=== PATIENT | female | born 1980 | race Caucasian/White ===

== ENCOUNTER 2018-11-16 20:13 | Outpatient (REF) | payer BC, SELFPAY ==
[2018-11-16 20:56] LABS: Abs Immature Grans 0.01 k/cumm (0.0-0.09); Absolute Basophil Count 0.03 k/cumm (0.0-0.2); Absolute Lymphocyte Count 1.67 k/cumm (1.2-3.4); Absolute Monocyte Count 0.62 k/cumm (0.11-0.7); Absolute Neutrophil Count 4.49 k/cumm (1.2-6.7); Basophils % 0.4; Eosinophils % 2.8; HCT 46.3 % (36.0-46.0); HGB 15.6 g/dL (12.0-15.5); Immature Grans % 0.1; Lymphocytes % 23.8; Mean Corp. HGB Concentration 33.7 g/dL (32.0-36.0); Mean Corpuscular Hemoglobin 28.3 pg (27.0-33.0); Mean Corpuscular Volume 83.9 fL (80-95); Mean Platelet Volume 11.8 fL (8.0-11.0); Monocytes % 8.8; Neutrophils % 64.1; Platelet Count 209 x1000/uL (130-400); RBC 5.52 m/cumm (4.00-5.20); RBC Distribution Width 13.5 % (11.7-14.6); White Blood Cell Count 7.02 k/cumm (4.4-10.8)
[2018-11-16 21:20] LABS: ALT 18 U/L (12-78); AST 11 U/L (15-37); Albumin 3.9 g/dL (3.4-5.0); Alkaline Phosphatase 105 U/L (46-116); Anion Gap 10.9 mmol/L (3-11); BUN 8 mg/dL (7-18); Bilirubin, Total 0.8 mg/dL (0.2-1.0); CO2 26.1 mmol/L (21.0-32.0); CREATININE 0.85 mg/dL (0.55-1.02); Calcium 9.3 mg/dL (8.5-10.1); Chloride 104 mmol/L (98-107); Cholesterol 229 mg/dL (50-200); Glucose 82 mg/dL (70-100); HDL Cholesterol 48 mg/dL (40-60); LDL CHOLESTEROL 137 mg/dL (<100); Potassium 3.8 mmol/L (3.5-5.1); Sodium 141 mmol/L (136-145); Total Protein 7.4 g/dL (6.4-8.2); Triglyceride 169 mg/dL (30-150)
[2018-11-19 11:23] LABS: IgA 230 mg/dL (85-499); Interpretation SEE COMMENTS; Tissue Transglutaminase IgA <1.2 U/mL (<4.0)
== END 2018-11-16 20:33 ==
LOC: NCHCN 20:13
PROVIDERS: Visit Provider Family Medicine
DX: E78.5 Hyperlipidemia, unspecified (principal); R19.7 Diarrhea, unspecified
CPT/HCPCS: 80053; 80061; 82784; 83516; 83721; 85025

== ENCOUNTER 2019-08-20 09:33 | Outpatient (REF) | payer BC, SELFPAY ==
--- NOTE | 2019-08-20 08:00 | PAPFT_PTH ---
PATIENT: Roya Cowan LOC: [facility] U#:[id number] AGE/SX: 39/F ROOM: RE08/20/[address]: Ronel Klein : 1980 BED: DIS: 08/20/2019 SPEC #: [id number] RECD: 08/21/19 12:53 STATUS: ELYSSA REQ #: [id number] JEFFREY: 08/20/19 08:[address]: Ronel Klein DEPT: [facility] Cytology RECD BY: Savi Cano ENTERED: 08/21/19 12:53 SP TYPE: PAPFT OTHR DR: Farzad Patterson Tissues: 1 - CX/ENDOCX FOR PAP SMEARS Procedures: PAP THIN PREP/UVM Screening HPV DNA PROBE Comments: [id number]
[2019-08-20 21:44] LABS: HCT 41.8 % (36.0-46.0); Mean Corp. HGB Concentration 33.5 g/dL (32.0-36.0); Mean Corpuscular Hemoglobin 28.2 pg (27.0-33.0); Mean Corpuscular Volume 84.1 fL (80-95); Mean Platelet Volume 11.7 fL (8.0-11.0); Platelet Count 214 x1000/uL (130-400); RBC 4.97 m/cumm (4.00-5.20); RBC Distribution Width 13.4 % (11.7-14.6); White Blood Cell Count 4.89 k/cumm (4.4-10.8)
== END 2019-08-20 09:53 ==
LOC: NCHCN 09:33
PROVIDERS: Visit Provider Family Medicine
DX: Z00.00 Encounter for general adult medical examination without abnormal findings (principal); Z12.4 Encounter for screening for malignant neoplasm of cervix; D68.51 Activated protein C resistance
CPT/HCPCS: 85027; 88142; 87624

== ENCOUNTER 2021-04-22 17:45 | Outpatient (REF) | payer BC, SELFPAY ==
[2021-04-24 15:09] LABS: COVID-19 RT-PCR UVMMC Result Negative (Negative)
== END 2021-04-22 17:46 | disposition home or self-care (01) ==
LOC: NCHCN 17:45
PROVIDERS: Visit Provider Nurse Practitioner Family
DX: Z20.822 Contact with and (suspected) exposure to COVID-19 (principal); J06.9 Acute upper respiratory infection, unspecified
CPT/HCPCS: U0003

== ENCOUNTER 2021-09-30 17:50 | Outpatient (REF) | payer BC, SELFPAY | END 2021-09-30 17:51 | disposition home or self-care (01) | LOC: NCHCN 17:50 | PROVIDERS: Visit Provider Registered Nurse | DX: R39.9 Unspecified symptoms and signs involving the genitourinary system (principal) | CPT/HCPCS: 87086 ==

== ENCOUNTER 2022-03-04 18:54 | Outpatient (REF) | payer BC, SELFPAY ==
[2022-03-04 20:41] LABS: Abs Immature Grans 0.01 10^3/uL (0.0-0.06); Absolute Basophil Count 0.08 10^3/uL (0.0-0.2); Absolute Eosinophil Count 0.17 10^3/uL (0.0-0.7); Absolute Lymphocyte Count 2.08 10^3/uL (1.2-3.4); Absolute Monocyte Count 0.62 10^3/uL (0.1-0.8); Absolute Neutrophil Count 3.82 10^3/uL (1.2-6.7); Basophils % 1.2; Eosinophils % 2.5; HCT 40.9 % (36.0-46.0); Immature Grans % 0.1; Lymphocytes % 30.7; MCH 28.6 pg (27.0-33.0); MCHC 34.2 % (32.0-36.0); MCV 84 fL (80-95); MPV 11.7 fL (8.0-11.0); Monocytes % 9.1; Neutrophils % 56.4; Platelet Count 240 10^3/uL (130-400); RDW-SD 39.4 fL; WBC 6.78 10^3/uL (4.4-10.8)
[2022-03-04 21:03] LABS: ALT 22 U/L (14-59); AST 22 U/L (15-37); Albumin 3.3 g/dL (3.4-5.0); Alkaline Phosphatase 90 U/L (46-116); BUN 9 mg/dL (7-18); Bilirubin, Total 0.4 mg/dL (0.2-1.0); CREATININE 0.9 mg/dL (0.55-1.02); Calculated LDL 120 mg/dL (<100); Chloride 103 mmol/L (98-107); Cholesterol 218 mg/dL (<200); Glucose 98 mg/dL (74-106); HDL Cholesterol 54 mg/dL (40-60); Hemoglobin A1C 5.3 % (<5.7); Potassium 3.6 mmol/L (3.5-5.1); Sodium 137 mmol/L (136-145); TSH (W/Ref FT4) 1.53 uIU/mL (0.36-3.74); Total Protein 6.7 g/dL (6.4-8.2); Triglyceride 223 mg/dL (<150)
[2022-03-07 06:02] LABS: Vitamin D 25 Total 13.4 ng/mL (30-100)
== END 2022-03-04 18:55 | disposition home or self-care (01) ==
LOC: NCHCN 18:54
PROVIDERS: Visit Provider Registered Nurse
DX: R53.83 Other fatigue (principal); E88.81 Metabolic syndrome and other insulin resistance; E78.5 Hyperlipidemia, unspecified; E66.01 Morbid (severe) obesity due to excess calories
CPT/HCPCS: 80053; 80061; 82306; 82043; 82570; 83036; 84443; 85025

== ENCOUNTER 2022-05-30 16:02 | Outpatient (REF) | payer BC, SELFPAY ==
[2022-06-01 10:32] LABS: COVID-19 RT-PCR UVMMC Result Negative (Negative)
== END 2022-05-30 16:03 | disposition home or self-care (01) ==
LOC: NCHCN 16:02
PROVIDERS: Visit Provider Nurse Practitioner Family
DX: Z20.822 Contact with and (suspected) exposure to COVID-19 (principal); J20.9 Acute bronchitis, unspecified
CPT/HCPCS: U0003

== ENCOUNTER 2022-07-20 15:24 | Outpatient (REF) | payer BC, SELFPAY ==
[2022-07-20 15:46] LABS: Vitamin D 25 Total 31.7 ng/mL (30-100)
== END 2022-07-20 15:25 | disposition home or self-care (01) ==
LOC: NCHCN 15:24
PROVIDERS: Visit Provider Family Medicine
DX: E55.9 Vitamin D deficiency, unspecified (principal)
CPT/HCPCS: 82306

== ENCOUNTER 2022-09-14 17:18 | Outpatient (REF) | payer BC, SELFPAY ==
[2022-09-14 21:12] LABS: Anion Gap 10.4 mmol/L (3-11); BUN 8 mg/dL (7-18); CO2 24.6 mmol/L (21.0-32.0); Calcium 9.5 mg/dL (8.5-10.1); Chloride 102 mmol/L (98-107); Estimated GFR 73.04 (mL/min/1.73m2); Glucose 105 mg/dL (74-106); Potassium 3.2 mmol/L (3.5-5.1); Sodium 137 mmol/L (136-145)
== END 2022-09-14 17:19 | disposition home or self-care (01) ==
LOC: NCHCN 17:18
PROVIDERS: Visit Provider Family Medicine
DX: N28.9 Disorder of kidney and ureter, unspecified (principal); E87.6 Hypokalemia
CPT/HCPCS: 80048

== ENCOUNTER 2023-09-08 11:22 | Outpatient (REF) | payer BC, SELFPAY ==
--- OUTSIDE RECORDS SUMMARY | 2023-09-08 11:31 | XMS_ITS | CCD ---
Author Name Unknown Address [address] [place] [address] [id number] Organization Unknown Address [address] [place], [place] [id number] Care Team Providers Care Operator And Truck Driver Name Role Phone CHENTE CASTANEDA Attending Physician [phone] CHENTE CASTANEDA Rounding (Secondary) Physici an [phone] Vital Signs Unknown or Not Available. Allergies Allergy Code Allergy Type Reaction Status PERTUSSIS IMMUNE GLOBULIN 0 Drug allergy UNKNOWN; SWELLING AND REDNESS Active PERTUSIS VACCINE {Clinical monitoring unavailable} 0 Drug allergy SWELLING Active Procedures Unknown or Not Available. History of Immunizations Immunization Code Date MMR 03 07/24/2015 Problems Problem Code Start Date Resolved Date Status Vitamin D deficiency 48998663 Acti ve Hypertension 20202993 Active Obesity 150510591 Active Asthma 534592321 Active GERD 515126469 Active Migraine 86676523 Active Results Unknown or Not Available. Active Medications Medication Code Dose Units Frequency Route Modificatio n Start Date/Time Potassium Chloride 20MEQ Oral Tablet, Extended Release 0619095 1 TABLET DAILY ORAL 16:10 Prescription Detail TAKE 1 TABLET ORAL DAILY Medications Administered During Visit Unknown or Not Available. Encounters Encounter Diagnosis Diagnosis Code Start Date Impingement syndrome of left shoulder M7542 04/14/2023 Social History Smoking Status Code Start Date End Date Never smoker 579382689 Patient Decision Aids Unknown or Not Available. Discharge Instructions You were admitted to [facility] on 04/14/2023 14:42 with a principal diagnosis of Impingement syndrome of left shoulder You were discharged from [facility] on 04/14/2023 00:00 Should you have any questions prior to discharge, please contact a member of your healthcare team. If you have left the hospital and have any questions, please contact your primary care physician. Chief Complaint and Reason For Visit Unknown or Not Available. Function Status Unknown or Not Available. Plan of Care Unknown or Not Available. Referral/Transition of Care Unknown or Not Available.
--- OUTSIDE RECORDS SUMMARY | 2023-09-08 11:31 | XMS_ITS | CCD ---
Author Name Unknown Address [address] [place] [address] [phone] Organization Unknown Address [address] [place] [address] [phone] Care Team Providers Care Underground Mine Superintendent Name Role Phone CHENTE CASTANEDA Attending Physician [phone] CHENTE CASTANEDA Rounding (Secondary) Physici an [phone] Vital Signs Unknown or Not Available. Allergies Allergy Code Allergy Type Reaction Status PERTUSSIS IMMUNE GLOBULIN 0 Drug allergy UNKNOWN; SWELLING AND REDNESS Active PERTUSIS VACCINE {Clinical monitoring unavailable} 0 Drug allergy SWELLING Active Procedures Unknown or Not Available. History of Immunizations Immunization Code Date MMR 07/24/2015 Problems Problem Code Start Date Resolved Date Status Vitamin D deficiency 81854542 Acti ve Hypertension 80209352 Active Obesity 305889192 Active Asthma 761179401 Active GERD 571481432 Active Migraine 06928229 Active Results Unknown or Not Available. Active Medications Medication Code Dose Units Frequency Route Modificatio n Start Date/Time Potassium Chloride 20MEQ Oral Tablet, Extended Release 6258594 1 TABLET DAILY ORAL 16:10 Prescription Detail TAKE 1 TABLET ORAL DAILY Medications Administered During Visit Unknown or Not Available. Encounters Encounter Diagnosis Diagnosis Code Start Date Internal impingement of left shoulder [id number] 11/09/2022 Social History Smoking Status Code Start Date End Date Never smoker 850243813 Patient Decision Aids Unknown or Not Available. Discharge Instructions You were admitted to [facility] on 11/09/2022 09:50 with a principal diagnosis of Internal impingement of left shoulder You were discharged from [facility] on 11/09/2022 00:00 Should you have any questions prior [...]
--- OUTSIDE RECORDS SUMMARY | 2023-09-08 11:32 | XMS_ITS | CCD ---
Author Name Unknown Address [address] [place] [address] [phone] Organization Unknown Address [address] [place] [address] [phone] Care Team Providers Care Electro Mechanic Name Role Phone CHAZ HICKS Attending Physician [phone] Vital Signs Unknown or Not Available. Allergies Allergy Code Allergy Type Reaction Status PERTUSSIS IMMUNE GLOBULIN 0 Drug allergy UNKNOWN; SWELLING AND REDNESS Active PERTUSIS VACCINE {Clinical monitoring unavailable} 0 Drug allergy SWELLING Active Procedures Unknown or Not Available. History of Immunizations Immunization Code Date MMR 07/24/2015 Problems Problem Code Start Date Resolved Date Status Vitamin D deficiency 72440553 Acti ve Hypertension 26954369 Active Obesity 506177420 Active Asthma 630874764 Active GERD 898150419 Active Migraine 44560670 Active Results [facility] COVID RHEONIX* - Yanet ect Date/Time: 11/09/2021 09:15 Test Name Code Test Result Test Units Test Ref Rang e Tier- 33512-7 SYMPTOMS N/A SARS COV2 RNA: 40426-2 NEGATIVE N/A REFERENCE RANGE: NEGAT Active Medications Medication Code Dose Units Frequency Route Modificatio n Start Date/Time Potassium Chloride 20MEQ Oral Tablet, Extended Release 5486755 1 TABLET DAILY ORAL 16:10 Prescription Detail TAKE 1 TABLET ORAL DAILY Medications Administered During Visit Unknown or Not Available. Encounters Encounter Diagnosis Diagnosis Code Start Date Exposure to SARS-CoV-2 710158540 Social History Smoking Status Code Start Date End Date Never smoker 046202631 Patient Decision Aids Unknown or Not Available. Discharge Instructions You were admitted to [facility] on 11/09/2021 21:01 with a principal diagnosis of Contact with and (suspected) exposure to COVID-19 You had the following tests done:YUE COVID RHEONIX* You were discharged from [facility] on 11/09/2021 21:02 Should you have any questions prior to [...]
--- OUTSIDE RECORDS SUMMARY | 2023-09-08 11:32 | XMS_ITS | CCD ---
Author Name Unknown Address [address] [place] [address] [phone] Organization Unknown Address [address] [place] [address] [phone] Care Team Providers Care Veneer Clipper Name Role Phone MERLIN RAMSEY Attending Physician [phone] MERLIN RAMSEY Er Physician [phone] RAMYA Mathews Registered Nurse [phone] Vital Signs Vital Sign Value Unit Date/Time Recent/Initial ? BP Systolic 104 mmHg 09/02/2022 11:21 Initial VS BP Diastolic 67 mmHg 09/02/2022 11:21 Initia l VS Heart Rate 89 bpm 09/02/2022 11:21 Initial VS BMI (Body Mass Index) 43.27 kg/m^2 09/02/2022 11: 42 Initial VS Weight Measured 293 lbs 09/02/2022 11:42 Ini tial VS Height 69 in 09/02/2022 11:42 Initial VS BSA (Body Surface Area) 2.54 m^2 09/02/2022 1 1:42 Initial VS Respiratory Rate 18 bpm 09/02/2022 11:42 In itial VS O2 % BldC Oximetry 97 % 09/02/2022 11:42 Initial VS Body Temperature 37.1 degrees 09/02/2022 11:42 In itial VS BP Systolic 124 mmHg 09/02/2022 16:00 Most Re cent VS BP Diastolic 69 mmHg 09/02/2022 16:00 Most R ecent VS Respiratory Rate 18 bpm 09/02/2022 16:[address] Recent VS Heart Rate 84 bpm 09/02/2022 16:00 Most Rec ent VS O2 % BldC Oximetry 100 % 09/02/2022 16:00 Most Recent VS Allergies Allergy Code Allergy Type Reaction Status PERTUSSIS IMMUNE GLOBULIN 0 Drug allergy UNKNOWN; SWELLING AND REDNESS Active PERTUSIS VACCINE {Clinical monitoring unavailable} 0 Drug allergy SWELLING Active Procedures Unknown or Not Available. History of Immunizations Immunization Code Date MMR 03 07/24/2015 Problems Problem Code Start Date Resolved Date Status Vitamin D deficiency 92904064 Acti ve Hypertension 24249923 Active Obesity 427584686 Active Asthma 653224555 Active GERD 429428265 Active Migraine 26255226 Active Results BASIC METABOLIC PANEL (BMP) - Collect Date/Time: 09/02/2022 11:30 Test Name Code Test Result Test Units Test Ref Rang e GLUCOSE 2345-7 100 mg/dL L=70 H=116 BUN 3094-0 17 mg/dL L=6 H=25 CREATININE 2160-0 1.35 mg/dL L=0.51 H=0.95 SODIUM SERUM 2951-2 136 mmol/L L=136 H=145 POTASSIUM SERUM 2823-3 2.8 mmol/L L=3.4 H=5 .2 CHLORIDE SERUM 2075-0 100 mmol/L L=96 H=110 CARBON DIOXIDE (CO2) 2028-9 23 mmol/L L=22 H=34 ANION GAP 06887-9 13.2 mmol/L CALCIUM SERUM 52569-1 9.4 mg/dL L=8.2 H=10. 2 AGE 42 years eGFR (non-Afr.Amer.) 26805-9 43 mL/min eGFR (Afr-Nauruan) 99138-9 53 mL/min LIPASE* NEW - Collect Date/T randy: 09/02/2022 11:30 Test Name Code Test Result Test Units Test Ref Rang e LIPASE. 58 U/L L=16 H=77 MAGNESIUM SERUM* - Collect D ate/Time: 09/02/2022 11:30 Test Name Code Test Result Test Units Test Ref Rang e MAGNESIUM 32886-3 2.1 mg/dL L=1.8 H=2.4 TSH THYROID STIMULATING HORM ONE* - Collect Date/Time: 09/02/2022 11:30 Test Name Code Test Result Test Units Test Ref Rang e TSH 3014-8 1.014 uIU/mL L=0.360 H=3.74 0 CBC W/ DIFFERENTIAL* - Colle ct Date/Time: 09/02/2022 11:30 Test Name Code Test Result Test Units Test Ref Rang e WBC 6690-2 7.68 th/cmm L=5.00 H=10.00 NEUT % 61.5 % L=40.0 H=80.0 LYMPH % 23.7 % L=10.0 H=50.0 MONO % 98691-1 11.2 % L=2.0 H=12.0 EOS % 2.6 % L=0.0 H=8.0 BASO % 0.9 % L=0.0 H=3.0 IG % 2514-8 0.1 % L=0.0 H=1.1 NRBC % 94721-0 0.0 % L=0.0 H=0.0 NEUT abs count 751-8 4.7 th/cmm L=1.6 H=8. 4 LYMPH abs count 731-0 1.8 th/cmm L=1.5 H=4 .0 MONO abs count 742-7 0.9 th/cmm L=0.2 H=1. 0 EOS abs count 711-2 0.2 th/cmm L=0.0 H=0.5 BASO abs count 704-7 0.1 th/cmm L=0.0 H=0. 2 IG abs count 96950-7 0.0 th/cmm L=0.0 H=0.1 NRBC abs count 41017-3 0.0 mil/cmm L=0.0 H=0. 0 RBC 789-8 5.43 mil/cmm L=3.90 H=5.40 HEMOGLOBIN 718-7 15.8 gm/dL L=12.0 H=16.0 HEMATOCRIT 4544-3 45 % L=37 H=47 MCV 787-2 82 fL L=82 H=92 MCH 785-6 29.1 pg L=27.0 H=31.0 MCHC 786-4 35.4 % L=32.0 H=36.0 RDW-SD 788-0 39.0 fL L=39.0 H=49.0 PLATELET COUNT 777-3 323 th/cmm L=150 H=45 0 CLOSTRIDIUM DIFFICILE BY PCR * - Collect Date/Time: 09/02/2022 15:35 Test Name Code Test Result Test Units Test Ref Rang e Consistency = 37701-6 WATERY N/A C. DIFFICILE DNA 74195-1 NEGATIVE N/A Normal: Negative LACTOFERRIN DETECTION STOOL - Collect Date/Time: 09/02/2022 15:35 Test Name Code Test Result Test Units Test Ref Rang e Consistency: LOOSE/SOFT N/A Lactoferrin stool POSITIVE N/A OCCULT BLOOD STOOL 1 SCR NON -NEOPLASM* - Collect Date/Time: 09/02/2022 15:35 Test Name Code Test Result Test Units Test Ref Rang e OCCULT BLD,STOOL 2335-8 NEGATIVE N/A URINALYSIS WITH REFLEX CULT IF POSITIVE* - Collect Date/Time: 09/02/2022 15:36 Test Name Code Test Result Test Units Test Ref Rang e COLLECTION MODE: 88552-5 CLEAN CATCH N/A Color 5778-6 YELLOW N/A yellow Appearance 5767-9 CLOUDY N/A clear Glucose urine 26005-9 NEGATIVE N/A negative mg /dl Bilirubin 5770-3 SMALL N/A negative Ketones 2514-8 15 N/A negative mg/dl Spec gravity 5811-5 1.025 N/A 1.003 - 1.03 0 pH urine 2756-5 6.0 N/A 5.0 - 7.0 Protein 93920-1 TRACE N/A negative mg/dl Urobilinogen 80440-2 0.2 N/A <or= 1 EU/dl Nitrite. 5802-4 NEGATIVE N/A negative Blood 5794-3 LARGE N/A negative Leukocytes. TRACE N/A negative MICROSCOPIC INDICATED N/A WBCs. 36537-6 5-10 N/A 0-5 / hpf RBCs 91621-9 5-10 N/A 0-5 / hpf Epith cells 11808-1 25-100 N/A 0-5 / hpf Cell types squamous N/A Crystals none N/A none Bacteria moderate N/A none Mucus 8247-9 none N/A none Casts 37062-0 none N/A none /lpf FECAL BACTERIAL PATHOGENS BY PCR - Collect Date/Time: 09/02/2022 15:35 Test Name Code Test Result Test Units Test Ref Rang e Salmonella PCR Negative N/A Negative Shigella PCR Negative N/A Negative Campylobacter PCR Negative N/A Negativ e Shiga Toxin PCR Negative N/A Negative OVA AND PARASITES - COMPLETE * - Collect Date/Time: 09/02/2022 15:35 Test Name Code Test Result Test Units Test Ref Rang e Parasite Growth No ova and parasites seen. N/A Active Medications Medications Administered During Visit Medication Dose Units Frequency Route Date/Time of Last Dose SODIUM CHLORIDE 0.9% 1000ML 1000 ML X1 09/02/2022 11:40 SODIUM CHLORIDE 0.9% 1000ML 1000 ML X1 09/02/2022 12:45 POTASSIUM CHL IN NS: 40mEq/1000ML 1000 ML X1 09/02/2022 13:35 Encounters Encounter Diagnosis Diagnosis Code Start Date Dehydration E860 09/02/2022 Social History Smoking Status Code Start Date End Date Never smoker 073588523 Patient Decision Aids Unknown or Not Available. Discharge Instructions You were admitted to on 09/02/2022 11:14 with a principal diagnosis of Dehydration You had the following tests done:URINALYSIS WITH REFLEX CULT IF POSITIVE*CLOSTRIDIUM DIFFICILE BY PCR*FECAL BACTERIAL PATHOGENS BY PCRLACTOFERRIN DETECTION STOOLOCCULT BLOOD STOOL 1 SCR NON-NEOPLASM*OVA AND PARASITES - COMPLETE*BASIC METABOLIC PANEL (BMP)CBC W/ DIFFERENTIAL*LIPASE* NEWMAGNESIUM SERUM*TSH THYROID STIMULATING HORMONE* You were discharged from on 09/02/2022 16:20 Should you have any questions prior to discharge, please contact a member of your healthcare team. If you have left the hospital and have any questions, please contact your primary care physician. Chief Complaint and Reason For Visit Chief Complaint Date of Onset LOW BP HIGH HEART RATE Function Status Unknown or Not Available. Plan of Care Unknown or Not Available. Referral/Transition of Care Unknown or Not Available.
--- OUTSIDE RECORDS SUMMARY | 2023-09-08 11:32 | XMS_ITS | CCD ---
Author Name Unknown Address [address] [place] [address] [phone] Organization Unknown Address [address] [place] [address] [phone] Care Team Providers Care Manager Global Name Role Phone ALINA SHELTON Attending Physician [phone] ALINA SHELTON Rounding (Secondary) Physician [phone] Vital Signs Unknown or Not Available. Allergies Allergy Code Allergy Type Reaction Status PERTUSSIS IMMUNE GLOBULIN 0 Drug allergy UNKNOWN; SWELLING AND REDNESS Active PERTUSIS VACCINE {Clinical monitoring unavailable} 0 Drug allergy SWELLING Active Procedures Unknown or Not Available. History of Immunizations Immunization Code Date MMR 03 07/24/2015 Problems Problem Code Start Date Resolved Date Status Vitamin D deficiency 95468521 Acti ve Hypertension 81519780 Active Obesity 760101102 Active Asthma 102072679 Active GERD 056905703 Active Migraine 70265389 Active Results Unknown or Not Available. Active Medications Medication Code Dose Units Frequency Route Modificatio n Start Date/Time Potassium Chloride 20MEQ Oral Tablet, Extended Release 5334422 1 TABLET DAILY ORAL 16:10 Prescription Detail TAKE 1 TABLET ORAL DAILY Medications Administered During Visit Unknown or Not Available. Encounters Encounter Diagnosis Diagnosis Code Start Date Tachypnea, not elsewhere classified R0682 03/08/2022 Social History Smoking Status Code Start Date End Date Never smoker 042501829 Patient Decision Aids Unknown or Not Available. Discharge Instructions You were admitted to [facility] on 03/08/2022 14:33 with a principal diagnosis of Tachypnea, not elsewhere classified You were discharged from [facility] on 03/08/2022 14:33 Should you have any questions prior to [...]
--- OUTSIDE RECORDS SUMMARY | 2023-09-08 11:32 | XMS_ITS | CCD ---
Author Name Unknown Address [address] [place] [address] [id number] Organization Unknown Address [address] [place] [address] [phone] Care Team Providers Care Mainspring Former Name Role Phone DONNA BRADLEY Attending Physician [phone] Vital Signs Unknown or Not Available. Allergies Allergy Code Allergy Type Reaction Status PERTUSSIS IMMUNE GLOBULIN 0 Drug allergy UNKNOWN; SWELLING AND REDNESS Active PERTUSIS VACCINE {Clinical monitoring unavailable} 0 Drug allergy SWELLING Active Procedures Unknown or Not Available. History of Immunizations Immunization Code Date MMR 03 07/24/2015 Problems Problem Code Start Date Resolved Date Status Vitamin D deficiency 09379239 Acti ve Hypertension 60176198 Active Obesity 678537534 Active Asthma 723729228 Active GERD 053921833 Active Migraine 13734072 Active Results Unknown or Not Available. Active Medications Medication Code Dose Units Frequency Route Modificatio n Start Date/Time Potassium Chloride 20MEQ Oral Tablet, Extended Release 8051007 1 TABLET DAILY ORAL 16:10 Prescription Detail TAKE 1 TABLET ORAL DAILY Medications Administered During Visit Unknown or Not Available. Encounters Encounter Diagnosis Diagnosis Code Start Date Primary osteoarthritis, left shoulder X73196 07/01/2022 Social History Smoking Status Code Start Date End Date Never smoker 907892230 Patient Decision Aids Unknown or Not Available. Discharge Instructions You were admitted to [facility] on 07/01/2022 11:59 with a principal diagnosis of Primary osteoarthritis, left shoulder You were discharged from [facility] on 07/01/2022 11:59 Should you have any questions prior to [...]
--- OUTSIDE RECORDS SUMMARY | 2023-09-08 11:32 | XMS_ITS | CCD ---
Author Name Unknown Address [address] [place] [address] [phone] Organization Unknown Address [address] [place] [address] [phone] Care Team Providers Care Puncher And Fastener Name Role Phone DONNA BRADLEY Attending Physician [phone] Vital Signs Unknown or Not Available. Allergies Allergy Code Allergy Type Reaction Status PERTUSSIS IMMUNE GLOBULIN 0 Drug allergy UNKNOWN; SWELLING AND REDNESS Active PERTUSIS VACCINE {Clinical monitoring unavailable} 0 Drug allergy SWELLING Active Procedures Unknown or Not Available. History of Immunizations Immunization Code Date MMR 03 07/24/2015 Problems Problem Code Start Date Resolved Date Status Vitamin D deficiency 05361792 Acti ve Hypertension 66070451 Active Obesity 677667291 Active Asthma 969989926 Active GERD 516076838 Active Migraine 84401100 Active Results Unknown or Not Available. Active Medications Medication Code Dose Units Frequency Route Modificatio n Start Date/Time Potassium Chloride 20MEQ Oral Tablet, Extended Release 1351753 1 TABLET DAILY ORAL 16:10 Prescription Detail TAKE 1 TABLET ORAL DAILY Medications Administered During Visit Unknown or Not Available. Encounters Encounter Diagnosis Diagnosis Code Start Date Pain in left shoulder B47550 07/22/2022 Social History Smoking Status Code Start Date End Date Never smoker 125993201 Patient Decision Aids Unknown or Not Available. Discharge Instructions You were admitted to [facility] on 07/22/2022 07:58 with a principal diagnosis of Pain in left shoulder You were discharged from [facility] on 08/10/2022 14:29 Should you have any questions prior to [...]
[2023-09-08 15:16] LABS: Anion Gap 6.2 mmol/L (3-11); BUN 8 mg/dL (7-18); CO2 27.8 mmol/L (21.0-32.0); CREATININE 0.9 mg/dL (0.55-1.02); Calcium 9.1 mg/dL (8.5-10.1); Calculated LDL 122 mg/dL (<100); Chloride 107 mmol/L (98-107); Cholesterol 192 mg/dL (<200); Estimated GFR 82.37 (mL/min/1.73m2); Glucose 88 mg/dL (74-106); HDL Cholesterol 49 mg/dL (40-60); Potassium 4.1 mmol/L (3.5-5.1); Sodium 141 mmol/L (136-145); Triglyceride 105 mg/dL (<150)
[2023-09-08 15:17] LABS: Hemoglobin A1C 4.8 % (<5.7)
== END 2023-09-08 11:23 | disposition home or self-care (01) ==
LOC: NCHCN 11:22
PROVIDERS: PCP Family Medicine; Visit Provider Family Medicine
DX: I10 Essential (primary) hypertension (principal); E78.5 Hyperlipidemia, unspecified
CPT/HCPCS: 80048; 80061; 83036